=== PATIENT | male | born 1985 | race Caucasian/White ===

== ENCOUNTER 2018-03-14 20:58 | Emergency (ER) | payer MEDICAID ==
[2018-03-14] MEDS: KETOROLAC 60 MG INJ IM (23:53)
[2018-03-14] MEDS: LORAZEPAM 1 MG TAB PO (23:53)
== END 2018-03-15 00:47 | disposition home or self-care (01) ==
LOC: FTE 03-15 00:47
DX: R42 Dizziness and giddiness (principal)
CPT/HCPCS: 82962; 96372; 99284-25